=== PATIENT | female | born 1995 | race Caucasian/White ===

== ENCOUNTER 2016-10-07 20:32 | Emergency (ER) | payer OTHER ==
[~2016-10-07] VITALS: Ht 167.6 cm; Wt 72.5 kg
[2016-10-07 20:52] LABS: HEMATOCRIT 41.6 % (36.0-46.0); MCH 28.9 PG (29.0-34.0); MCHC 32.9 G/DL (30.0-36.0); MCV 87.8 FL (83-99); MEAN PLAT.VOLUME 11.1 uM^3 (9.5-12.4); PLATELET COUNT 196 K/uL (156-360); RBC DIS.WIDTH-CV 12.5 % (11.8-14.6); RBC DIS.WIDTH-SD 40.1 % (39-53); RED BLOOD COUNT 4.74 M/uL (3.80-5.20); WHITE BLOOD COUNT 6.8 K/uL (4.1-10.2)
[2016-10-07 21:01] LABS: ADD MIUA? YES; BILIRUBIN NEGATIVE; BLOOD SMALL; COLOR YELLOW ((YELLOW)); GLUCOSE (STRIP) NEGATIVE; KETONES NEGATIVE; LEUKOCYTES NEGATIVE; NITRITE NEGATIVE; PROTEIN (STRIP) NEGATIVE; SPECIFIC GRAVITY 1.014 (1.000-1.030); UROBILINOGEN 0.2 MG/DL (0.2-1.0)
[2016-10-07 21:01] LABS: CHLORIDE 107 mEq/L (99-109); POTASSIUM 3.5 mEq/L (3.7-5.4); SODIUM 138 mEq/L (136-147)
[2016-10-07 21:04] LABS: GLUCOSE 121 mg/dL (70-99)
[2016-10-07 21:05] LABS: ANION GAP 8 MEQ/L (2-14)
[2016-10-07 21:06] LABS: BACTERIA RARE /HPF; EPITHELIAL CELLS RARE /HPF; MUCUS 2+ /LPF; RED BLOOD CELLS 0-5 /HPF (0-5); UCUL ADDED? NO; WHITE BLOOD CELLS 0-5 /HPF (0-5)
[2016-10-07 21:06] LABS: TOTAL BILIRUBIN 0.3 mg/dL (0.0-1.0)
[2016-10-07 21:07] LABS: ALKALINE PHOSPHATASE 70 IU/L (3-129)
[2016-10-07 21:08] LABS: UREA NITROGEN (BUN) 7 mg/dL (9-23)
[2016-10-07 21:09] LABS: GFR ESTIMATE (CALCULATED) > 59 mL/min/
[2016-10-07 21:17] LABS: QUANTITATIVE HCG < 4.0 MIU/ML
[2016-10-07] MEDS ORDERED: MOTRIN800 MG PO (23:00)
[2016-10-07] MEDS ORDERED: NORCO 5/3251 TABLET PO (23:00)
[2016-10-07 23:10] VITALS: BP 106/73
== END 2016-10-07 23:13 | disposition home or self-care (01) ==
LOC: EME 20:32
DX: R10.2 Pelvic and perineal pain (principal); R30.0 Dysuria; Z32.02 Encounter for pregnancy test, result negative; F17.200 Nicotine dependence, unspecified, uncomplicated
CPT/HCPCS: 76856; 80053; 81003; 84702; 85027; 99281; 99283

== ENCOUNTER 2017-02-03 20:06 | Emergency (ER) | payer OTHER ==
[~2017-02-03] VITALS: Ht 167.6 cm; Wt 70.2 kg
[~2017-02-03 20:06] MED LIST: MOTRIN800 MG PO; NORCO 5/3251 TABLET PO
[2017-02-03 20:42] LABS: ADD MIUA? YES; BILIRUBIN NEGATIVE; BLOOD SMALL; COLOR YELLOW ((YELLOW)); GLUCOSE (STRIP) NEGATIVE; KETONES NEGATIVE; LEUKOCYTES LARGE; NITRITE NEGATIVE; PROTEIN (STRIP) NEGATIVE; SPECIFIC GRAVITY 1.012 (1.000-1.030); UROBILINOGEN 0.2 MG/DL (0.2-1.0)
[2017-02-03 20:59] LABS: BACTERIA 2+ /HPF; EPITHELIAL CELLS 2+ /HPF; MUCUS TRACE /LPF; UCUL ADDED? YES; WHITE BLOOD CELLS TNTC /HPF (0-5)
[2017-02-03] MEDS ORDERED: BACTRIM,SEPT1 TABLET PO (21:29)
[2017-02-03 22:04] VITALS: BP 110/67
[2017-02-05 11:34] LABS: CHLAMYDIA TRACHOMATIS NEGATIVE; NEISSERIA GONORRHOEAE NEGATIVE
== END 2017-02-03 22:05 | disposition home or self-care (01) ==
LOC: EME 20:06
PROVIDERS: Physician Assistant
DX: N39.0 Urinary tract infection, site not specified (principal); N72 Inflammatory disease of cervix uteri; Z20.2 Contact with and (suspected) exposure to infections with a predominantly sexual mode of transmission; F17.200 Nicotine dependence, unspecified, uncomplicated
CPT/HCPCS: 81003; 84702; 87086; 87210; 87480; 87491; 87510; 87591; 87660; 99281; 99283; J0696